=== PATIENT | male | born 1980 | race Asian ===

== ENCOUNTER 2020-03-14 00:39 | Outpatient (CLI) | payer BC, SELFPAY ==
[2020-03-14 19:34] LABS: SARS-CoV-2 RNA PCR Negative
== END 2020-03-14 00:40 | disposition home or self-care (01) ==
LOC: ANHCOVIDDT 00:39
PROVIDERS: PCP Internal Medicine; Visit Provider Internal Medicine Gastroenterology
DX: Z01.812 Encounter for preprocedural laboratory examination (principal); Z20.828 Contact with and (suspected) exposure to other viral communicable diseases
CPT/HCPCS: 87635; C9803; U0003

== ENCOUNTER 2020-03-16 01:49 | Day surgery (SDC) | payer BC, SELFPAY ==
[2020-03-08 14:28] VITALS: BMI 22.8
--- NOTE | 2020-03-14 14:59 | WPDANESEPPF ---
Anes - Initial Pre Proc Eval Procedure: Operation Date: 03/16/20 11:30 Proposed Procedures p Colonoscopy - Jorge Arce MD Date/Time: 03/14/20 14:59 Surgeon: Jorge Arce MD Pre Op Diagnosis: Diarrhea Patient Data Age: 39 Gender: M Height: 1.75 m Weight: 70 kg Allergies Allergy/AdvReac Type Severity Reaction Status Date / Time No Known Allergies Allergy Verified 03/16/20 10:51 Home Medications Medication Instructions Recorded Confirmed Type peg 3350-electrolytes 236 240 ml PO Q10M #4000 ml 03/08/20 Rx gram-22.74 gram-6.74 gram-5.86 gram solution ciprofloxacin HCl 03/16/20 03/16/20 History Patient hx anesthesia problems: none Family hx anesthesia problems: none [facility] Social History Social History (Updated 03/16/20 @ 10:59 by Raj Gomes DO) Social History: 1-2 shots vodka/day Substance use type: marijuana Gender identity (if verbalized by the patient): Male Sexual Orientation (if Verbalized by the Patient): Straight or Heterosexual Anes - Eval Final PreProcedure Day of Procedure 03/14/20 14:59 Patient weight: normal Heart: regular rate and rhythm Lungs: clear to auscultation and normal air movement Airway: Mallampati scale Neurological: alert and oriented Last oral intake: >/= 8 hours ASA classification: III Emergent: no Anesthetic plan: proceed Anesthesia type and monitoring: general GIVS and standard monitoring Informed Consent: The patient's anesthetic plan and its attendant risks and benefits were discussed with the patient/family/POA. Questions were solicited and answers provided to the satisfaction of the patient/family/POA.
[2020-03-16 10:53] VITALS: BP 114/73; PULSE 48; RESP 116; TEMP 37.1; O2SAT 99; BMI 22.1
[2020-03-16] MEDS: LACTATED RINGERS 1,000 ML 150 ML IV CONT (11:05)
--- NOTE | 2020-03-16 11:13 | PM.HPGS ---
History of Present Illness History of Present Illness Consent: Risks, benefits, and alternatives have been discussed and questions answered. Patient agrees to proceed with procedure. Chief complaint: Diarrhea Narrative: Parag Singh is a 39 year old male with 5-6 months of diarrhea, 5-7 times a day, no abdominal pain or weight loss. He tried abx without help. Never had colonoscopy. Review of Systems Constitutional: Constitutional: Denies headache(s) and Denies weakness Eyes: Eyes: Denies blurry vision ENT: Reports Normal hearing present, Denies headache(s) and Denies neck pain Cardiovascular: Cardiovascular: Denies chest pain and Denies dyspnea Respiratory: Respiratory: Denies dyspnea Gastrointestinal: Gastrointestinal: Reports no additional gastrointestinal complaints Genitourinary: Genitourinary: Denies dysuria Musculoskeletal: Musculoskeletal: Denies neck pain Integumentary/Breasts: Skin/Breast: Denies dry skin Neurologic: Reports Normal hearing present, Denies headache(s) and Denies weakness Psychiatric: Psychiatric: Denies anxiety Endocrine: Endocrine: Denies change in body appearance Hematologic/Lymphatic: Hematologic/Lymphatic: Denies easy bleeding Allergic/Immunologic: Allergic/Immunologic: Denies urticaria PMFSH Past Medical History Medical History (Updated 03/16/20 @ 11:13 by oJrge Arce MD) Chronic diarrhea Social History Social History (Updated 03/16/20 @ 10:59 by Raj Gomes DO) Social History: 1-2 shots vodka/day Substance use type: marijuana Gender identity (if verbalized by the patient): Male Sexual Orientation (if Verbalized by the Patient): Straight or Heterosexual Meds Home Medications and Allergies Home Medications Medication Instructions Recorded Confirmed Type peg 3350-electrolytes 236 240 ml PO Q10M #4000 ml 03/08/20 Rx gram-22.74 gram-6.74 gram-5.86 gram solution ciprofloxacin HCl 03/16/20 03/16/20 History Allergies Allergy/AdvReac Type Severity Reaction Status Date / Time No Known Allergies Allergy Verified 03/16/20 10:51 Vital Signs Vital Signs - 24 hr 03/16/20 10:53 Temperature 98.7 F Pulse Rate 48 L Respiratory Rate 116 H Blood Pressure 114/73 Pulse Oximetry 99 Exam Const: General: comfortable and no acute distress HENMT: General nose exam: Normal nares present Eyes: General: appearance normal, both eyes and all related structures Neck: Neck: no JVD Resp: Auscultation: clear to auscultation bilaterally Cardio: Rate: regular rate Rhythm: regular rhythm GI: Inspection: non-distended GI Palp: Yes Soft to palpation Skin: General skin exam: normal color Neuro: General: gait normal Speech: normal speech Extrem: General: normal to inspection Psych: Mental Status: mental status grossly normal Assessment and Plan Assessment and plan (1) Chronic diarrhea: Code(s): K52.9 - Noninfective gastroenteritis and colitis, unspecified Status: Acute Assessment and Plan: will proceed with colonoscopy, assess if ibd, ? ibs
[2020-03-16 11:35] VITALS: BP 89/50; PULSE 66; RESP 19; O2SAT 98
[2020-03-16 11:45] VITALS: BP 93/59; PULSE 60; RESP 18; O2SAT 100
[2020-03-16 11:55] VITALS: BP 99/69; PULSE 60; RESP 18; O2SAT 100
[2020-03-16 12:05] VITALS: BP 115/80; PULSE 62; RESP 18; O2SAT 100
== END 2020-03-16 12:36 | disposition home or self-care (01) ==
PROVIDERS: PCP Internal Medicine; Visit Provider Internal Medicine Gastroenterology
PROC: 0DJD8ZZ Inspection of Lower Intestinal Tract, Via Natural or Artificial Opening Endoscopic (ICD-10-PCS; CPT 45378; principal; 2020-03-16 11:30)
DX: K52.9 Noninfective gastroenteritis and colitis, unspecified (principal); K57.30 Diverticulosis of large intestine without perforation or abscess without bleeding
CPT/HCPCS: 45380; 88305; J2704; J7120